=== PATIENT | female | born 1930 | race Caucasian/White ===

== ENCOUNTER 2016-10-16 11:31 | Emergency (ER) | payer MEDICARE, OTHER ==
[~2016-10-16] VITALS: Wt 60.5 kg
[2016-10-16] MEDS ORDERED: ONDANSETRON (ODT) 4 MG TAB ODT STA (11:58)
[2016-10-16] MEDS ORDERED: CARISOPRODOL 350 MG TAB PO ONE (12:00)
[2016-10-16] MEDS ORDERED: OXYCODONE/ACETAMINOPHEN (5/325) TAB PO ONE (12:00)
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
[2016-10-16] MEDS ORDERED: SIMV40TA2 PO (13:59)
[2016-10-16] MEDS ORDERED: ZOLP5TAB6 PO (14:00)
[2016-10-16] MEDS ORDERED: LOSA100T7 PO (14:01)
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
--- NOTE | 2016-10-16 14:27 | RADRPT ---
PROCEDURE: XR Forearm. CLINICAL INDICATION: Right forearm pain, fall TECHNIQUE: 2 views of the right forearm were obtained. COMPARISON: No prior studies are available for comparison. FINDINGS: There is no radiographic evidence of acute fracture of the right forearm. The soft tissues are marquis sly unremarkable. The bones are osteopenic. IMPRESSION: 1. No radiographic evidence of acute osseous abnormality of the right forearm noting osteopenia. RPTAT: UU .Michael Mcadams MD, MD Date Time Electronically viewed and signed by .Michael Mcadams MD, on 10/16/2016 14:27 .K/
--- NOTE | 2016-10-16 14:28 | RADRPT ---
PROCEDURE: XR Knee. CLINICAL INDICATION: Right knee pain TECHNIQUE: 3 images of the right knee are available for review. COMPARISON: None available FINDINGS: There is no radiographic evidence of acute osseous abnormality noting osteopenia. Alignment is normal. There is mild tricompartmental osteoarthrosis. There is a small knee joint effusion. IMPRESSION: 1. No radiographic evidence of acute osseous abnormality noting osteopenia. 2. Mild tricompartmental osteoarthrosis. RPTAT: UU .Michael Mcadams MD, Date Time Electronically viewed and signed by .Michael Mcadams MD, on 10/16/2016 14:27 .K/
[2016-10-16] MEDS ORDERED: CARI350T PO (14:39)
[2016-10-16] MEDS ORDERED: OXYC-279 PO (14:39)
[2016-10-16] MEDS ORDERED: ETOD300C26 PO (14:40)
[2016-10-16] MEDS ORDERED: ONDA4TAB8 PO (14:40)
[2016-10-16 15:01] VITALS: BP 122/50; PULSE 59; RESP 18; TEMP 98.6
== END 2016-10-16 15:02 | disposition home or self-care (01) ==
LOC: E/R 11:31
DX: S49.91XA Unspecified injury of right shoulder and upper arm, initial encounter (principal); M15.0 Primary generalized (osteo)arthritis; M85.861 Other specified disorders of bone density and structure, right lower leg; V79.69XA Unspecified bus occupant injured in collision with other motor vehicles in traffic accident, initial encounter
CPT/HCPCS: 72040; 72072; 73562

== ENCOUNTER 2018-06-18 06:13 | Day surgery (SDC) | END 2018-06-18 11:15 | disposition home or self-care (01) ==